=== PATIENT | female | born 1970 | race African-American/Black ===

== ENCOUNTER 2022-08-09 12:55 | Emergency (ER) | payer OTHER, SELFPAY ==
[2022-08-09 13:01] VITALS: BP 159/58; PULSE 60; RESP 16; TEMP 36.5; O2SAT 99; BMI 30.2
--- NOTE | 2022-08-09 13:03 | ED_ITS ---
HPI - General Adult General Chief complaint: Wound/Laceration Stated complaint: needle stick Time Seen by Provider: 08/09/22 14:06 Related Data Previous Rx's Medication Instructions Recorded doxycycline monohydrate 100 mg 100 mg PO BID 10 days #20 tabs 08/09/22 tablet Allergies Allergy/AdvReac Type Severity Reaction Status Date / Time morphine Allergy Unknown Verified 05/11/16 00:00 [facility] Social History Social History Advance Directives: No Advance Directives Information Provided: Yes Physical Exam ED Vital Signs: Vital Signs - 24 hr 08/09/22 13:01 Temperature 97.7 F Pulse Rate 60 Respiratory Rate 16 Blood Pressure 159/58 H Pulse Oximetry 99 Oxygen Delivery Method Room Air BMI result Body Mass Index 30.2 Course Reevaluation(s) Reevaluation #1: 52-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 Time: 13:03 Medications Administered Discontinued Medications Generic Name Dose Route Start Last Admin Trade Name Freq PRN Reason Stop Dose Admin Diphtheria/Tetanus/Acell Pertussis 0.5 ml 08/09/22 14:13 08/09/22 15:12 Diphth,Pertus(Acell),Tet Adult 0.5 Ml Syringe IM 08/09/22 14:14 0.5 ml .ONCE ONE Administration Doxycycline Monohydrate 100 mg 08/09/22 14:13 08/09/22 15:11 Doxycycline Monohydrate 100 Mg Capsule PO 08/09/22 14:14 100 mg ONCE ONE Administration Raltegravir/Emtricitabine/Tenofovir 1 kit 08/09/22 14:13 08/09/22 15:14 Post Exposure Medication Kit PO 08/09/22 14:14 1 kit ONCE ONE Administration Medical Decision Making Lab Data Result diagrams: 08/09/22 14:45 08/09/22 14:45 Labs: Lab Results 08/09/22 08/09/22 08/09/22 Range/Units 14:45 14:45 14:45 WBC 4.7 L (4.8-10.8) X10*3/uL RBC 4.95 (4.20-5.50) X10*6/uL Hgb 13.8 (12.0-16.0) g/dl Hct 42.3 (37.0-47.0) % MCV 85.5 (80.0-98.0) fL MCH 27.9 (27.0-33.0) pg MCHC 32.6 (31.0-35.0) g/dl RDW 14.4 (11.0-16.0) % Plt Count 255 (160-400) X10*3/uL MPV 10.2 (9.4-12.3) fL Immature Gran % (Auto) 0.2 (0.0-0.4) % Neut % (Auto) 58.5 (45-73) % Lymph % (Auto) 34.0 (20-40) % [place] % (Auto) 6.0 (2-11) % Eos % (Auto) 0.9 (0-4) % Baso % (Auto) 0.4 (0-2) % Lymph # (Auto) 1.6 (1.2-4.9) X10*3/uL [place] # (Auto) 0.3 (0.1-1.2) X10*3/uL Eos # (Auto) 0.0 (0.0-0.4) X10*3/uL Baso # (Auto) 0.0 (0.0-0.2) X10*3/uL Abs Immat Gran (auto) 0.01 (0.00-0.03) X10*3/uL Absolute Neuts (auto) 2.7 (2.0-8.3) x10*3/uL Absolute Nucleated RBC 0.000 (0.0-0.012) X10*3/uL Nucleated RBC % (auto) 0.0 (0.0-0.2) /100WBC Sodium 139 (135-145) mmol/L Potassium 4.3 (3.3-5.1) mmol/L Chloride 105 (96-108) mmol/L Carbon Dioxide 24 (22-29) mmol/L Anion Gap 14 (12-20) BUN 16 (9-16) mg/dL Creatinine 1.06 (0.5-1.4) mg/dL Estim Creat Clear Calc 59.8 Estimated GFR 54 Random Glucose 78 (60-115) mg/dL Calcium 10.0 (8.4-10.2) mg/dL Magnesium 2.2 (1.6-2.6) mg/dL Total Bilirubin 0.5 (0.0-1.0) mg/dL AST 21 (5-31) U/L ALT 25 (0-31) U/L Alkaline Phosphatase 84 (39-117) U/L Total Protein 7.7 (6.5-8.0) g/dL Albumin 4.8 (3.5-5.0) g/dL Beta HCG, Quant < 2 mIU/mL Discharge Plan Discharge Clinical Impression: Needle stick injury, Work related injury, Vaccine for diphtheria-tetanus Patient Disposition: Home, Self-Care Instructions: Diphtheria/Tetanus Vaccine (By injection), Needle Stick Injuries (ED), Return to Work Instructions (ED) Additional Instructions: You have pending lab results. If any are positive or abnormal you will be contacted within 5-7 days. Please follow-up with work connection for your job. You have 72 hours to start your HIV prophylactic therapy. Return if any new or worsening symptoms. Prescriptions: New doxycycline monohydrate 100 mg tablet 100 mg PO BID 10 Days Qty: 20 0RF Referrals: Physician,None [Primary Care Provider] - 1 day (work connection for your job ) Stand Alone Forms: Work/School Release
--- NOTE | 2022-08-09 14:18 | ED_ITS ---
HPI - Wound/Laceration General Chief Complaint: Wound/Laceration Stated Complaint: needle stick Time Seen by Provider: 08/09/22 14:06 Source: patient Mode of arrival: ambulatory Limitations: no limitations History of Present Illness HPI narrative: Patient is a 52-year-old female with a reported past medical history who presents to the ED for needlestick injury to the left distal index finger this morning around 0900. 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 She reports her client placed the used needle on the table without telling her and when she went to clean the table she was stuck in her left index finger. She denies pain, swelling, num bness/tingling, and any other complaints at this time. She is unsure of her tetanus status. Onset (ago): hour(s) (5) Location: other (L index finger) Extremity Location: left: hand (L index finger) Place: work Patient tetanus UTD: No (unsure) Context: accidental Associated symptoms: none Related Data Previous Rx's Medication Instructions Recorded doxycycline monohydrate 100 mg 100 mg PO BID 10 days #20 tabs 08/09/22 tablet Allergies Allergy/AdvReac Type Severity Reaction Status Date / Time morphine Allergy Unknown Verified 05/11/16 00:00 Review of Systems Review of Systems: Constitutional : No Fever, No Chills, Cardiovascular : No Chest Pain, No SOB Respiratory : No Dyspnea Gastrointestinal : No abdominal pain Musculoskeletal : No Joint Swelling Skin : positive needle stick injury, No Foreign bodies, No rash, No surrounding erythema Neuro : No Weakness, No Numbness/tingling Psych : No SI/HI/thoughts of self injury Yes all other systems are reviewed and are negative [facility] Past Medical History Attestation statement: The following information was validated with the patient. Source: old records reviewed, obtained from family and nursing notes reviewed Social History Social History Advance Directives: No Advance Directives Information Provided: Yes Physical Exam Vital Signs: Vital Signs: Last Vital Signs Temp 97.7 F 08/09/22 13:01 Pulse 60 08/09/22 13:01 Resp 16 08/09/22 13:01 BP 159/58 H 08/09/22 13:01 Pulse Ox 99 08/09/22 13:01 O2 Del Method 08/09/22 13:01 BMI result Body Mass Index 30.2 vital signs have been reviewed as normal and appeared to be correct. Blood pressure 159/58 Heart rate normal. Respiration rate normal. Temperature normal. Oxygen saturation normal. Appearance: Alert. Oriented X3. No acute distress. Head: Normal external exam. Normocephalic. Atraumatic. Eyes: PERRLA. EOMI. Conjunctiva and sclera normal. Eyelids normal. ENT: Pharynx normal. Uvula midline. Moist mucous membranes. Neck: Normal inspection. Neck supple. FROM. CVS: Normal heart rate and rhythm. Respiratory: No respiratory distress. Painless inspiration. Skin: Skin warm and dry. Normal skin color. Normal skin turgor. No rashes/lesions/lacerations noted. Extremities: Extremities exhibit normal range of motion. Extremities nontender. Neuro: Oriented X 3. No motor deficit. No sensory deficit. Reflexes normal. Normal steady gait. No focal neuro deficits noted. Vascular: +2 radial pulses/+ 2 distal pedal pulses/+2 dorsalis pedis b/l. Normal cap refill. No cyanosis noted to upper extremity nails and lower extremity toes nails. Course Course Course Narrative: Patient is a 52-year-old female with a reported past medical history who presents to the ED for needlestick injury to the left distal index finger this morning around 0900. Tetanus status is unknown. Will order exposure panel of HIV, HBV, HCV. Discussed PrEP with pt, she would like to start the kit. Will order CBC, CMP, liver function, hCG prior to starting kit. Pt concerned for infection in the puncture site as her client is positive for MRSA. Puncture site is not currently erythematous, edematous, or warm however given pt concern will cover for MRSA with doxy. Will update tetanus today. Reevaluation(s) Reevaluation #1: Labs within normal limits. Hepatitis and HIV pending. Patient's tetanus was updated. Will DC home with antibiotics and HIV prophylactic therapy and antibiotics for possible MRSA and instructions return if any new or worsening symptoms. Patient understands agrees with this plan. Time: 15:24 Medications Administered Discontinued Medications Generic Name Dose Route Start Last Admin Trade Name Freq PRN Reason Stop Dose Admin Diphtheria/Tetanus/Acell Pertussis 0.5 ml 08/09/22 14:13 08/09/22 15:12 Diphth,Pertus(Acell),Tet Adult 0.5 Ml Syringe IM 08/09/22 14:14 0.5 ml .ONCE ONE Administration Doxycycline Monohydrate 100 mg 08/09/22 14:13 08/09/22 15:11 Doxycycline Monohydrate 100 Mg Capsule PO 08/09/22 14:14 100 mg ONCE ONE Administration Raltegravir/Emtricitabine/Tenofovir 1 kit 08/09/22 14:13 08/09/22 15:14 Post Exposure Medication Kit PO 08/09/22 14:14 1 kit ONCE ONE Administration MDM - Wound/Laceration Medical Records Attestation: I reviewed the patient's medical records. Lab Data Attestation: I reviewed the patient's lab results. Result diagrams: 08/09/22 14:45 08/09/22 14:45 Labs: Lab Results 08/09/22 08/09/22 08/09/22 Range/Units 14:45 14:45 14:45 WBC 4.7 L (4.8-10.8) X10*3/uL RBC 4.95 (4.20-5.50) X10*6/uL Hgb 13.8 (12.0-16.0) g/dl Hct 42.3 (37.0-47.0) % MCV 85.5 (80.0-98.0) fL MCH 27.9 (27.0-33.0) pg MCHC 32.6 (31.0-35.0) g/dl RDW 14.4 (11.0-16.0) % Plt Count 255 (160-400) X10*3/uL MPV 10.2 (9.4-12.3) fL Immature Gran % (Auto) 0.2 (0.0-0.4) % Neut % (Auto) 58.5 (45-73) % Lymph % (Auto) 34.0 (20-40) % [place] % (Auto) 6.0 (2-11) % Eos % (Auto) 0.9 (0-4) % Baso % (Auto) 0.4 (0-2) % Lymph # (Auto) 1.6 (1.2-4.9) X10*3/uL [place] # (Auto) 0.3 (0.1-1.2) X10*3/uL Eos # (Auto) 0.0 (0.0-0.4) X10*3/uL Baso # (Auto) 0.0 (0.0-0.2) X10*3/uL Abs Immat Gran (auto) 0.01 (0.00-0.03) X10*3/uL Absolute Neuts (auto) 2.7 (2.0-8.3) x10*3/uL Absolute Nucleated RBC 0.000 (0.0-0.012) X10*3/uL Nucleated RBC % (auto) 0.0 (0.0-0.2) /100WBC Sodium 139 (135-145) mmol/L Potassium 4.3 (3.3-5.1) mmol/L Chloride 105 (96-108) mmol/L Carbon Dioxide 24 (22-29) mmol/L Anion Gap 14 (12-20) BUN 16 (9-16) mg/dL Creatinine 1.06 (0.5-1.4) mg/dL Estim Creat Clear Calc 59.8 Estimated GFR 54 Random Glucose 78 (60-115) mg/dL Calcium 10.0 (8.4-10.2) mg/dL Magnesium 2.2 (1.6-2.6) mg/dL Total Bilirubin 0.5 (0.0-1.0) mg/dL AST 21 (5-31) U/L ALT 25 (0-31) U/L Alkaline Phosphatase 84 (39-117) U/L Total Protein 7.7 (6.5-8.0) g/dL Albumin 4.8 (3.5-5.0) g/dL Beta HCG, Quant < 2 mIU/mL Discharge Plan Discharge Clinical Impression: Needle stick injury, Work related injury, Vaccine for diphtheria-tetanus Patient Disposition: Home, Self-Care Instructions: Diphtheria/Tetanus Vaccine (By injection), Needle Stick Injuries (ED), Return to Work Instructions (ED) Additional Instructions: You have pending lab results. If any are positive or abnormal you will be contacted within 5-7 days. Please follow-up with work connection for your job. You have 72 hours to start your HIV prophylactic therapy. Return if any new or worsening symptoms. Prescriptions: New doxycycline monohydrate 100 mg tablet 100 mg PO BID 10 Days Qty: 20 0RF Referrals: Physician,None [Primary Care Provider] - 1 day (work connection for your job ) Stand Alone Forms: Work/School Release
[2022-08-09 14:58] LABS: MANUAL DIFF FLAG NO
[2022-08-09 15:01] LABS: Basophils Percent Auto 0.4 % (0-2); Eosinophils Percent Auto 0.9 % (0-4); Hematocrit 42.3 % (37.0-47.0); Hemoglobin 13.8 g/dl (12.0-16.0); Imm Gran Abs Auto 0.01 X10*3/uL (0.00-0.03); Imm Gran Pct Auto 0.2 % (0.0-0.4); Lymphocytes Absolute Auto 1.6 X10*3/uL (1.2-4.9); Mean Corpuscular HGB Conc 32.6 g/dl (31.0-35.0); Mean Corpuscular Hemoglobin 27.9 pg (27.0-33.0); Mean Corpuscular Volume 85.5 fL (80.0-98.0); Mean Platelet Volume 10.2 fL (9.4-12.3); Monocytes Absolute Auto 0.3 X10*3/uL (0.1-1.2); Neutrophils Absolute Auto 2.7 x10*3/uL (2.0-8.3); Neutrophils Percent Auto 58.5 % (45-73); Platelet Count 255 X10*3/uL (160-400); Red Blood Count 4.95 X10*6/uL (4.20-5.50); Red Cell Distribution Width 14.4 % (11.0-16.0); White Blood Count 4.7 X10*3/uL (4.8-10.8)
[2022-08-09] MEDS: Doxycycline Monohydrate 100 MG CAPSULE PO (15:11)
[2022-08-09] MEDS: Diphth,Pertus(ACell),Tet Adult 0.5 ML SYRINGE IM (15:12)
[2022-08-09] MEDS: Post Exposure Medication Kit 1 KIT PO (15:14)
[2022-08-09 15:21] LABS: Alanine Aminotransferase 25 U/L (0-31); Albumin Level 4.8 g/dL (3.5-5.0); Alkaline Phosphatase 84 U/L (39-117); Anion Gap 14 (12-20); Aspartate Amino Transferase 21 U/L (5-31); Bilirubin Total 0.5 mg/dL (0.0-1.0); Blood Urea Nitrogen 16 mg/dL (9-16); Carbon Dioxide 24 mmol/L (22-29); Chloride 105 mmol/L (96-108); Creatinine Clr Calc Pharmacy 59.8; Estimated Glomerular Filt Rate 54; Glucose Random 78 mg/dL (60-115); Magnesium 2.2 mg/dL (1.6-2.6); Potassium 4.3 mmol/L (3.3-5.1); Sodium 139 mmol/L (135-145); Total Protein 7.7 g/dL (6.5-8.0)
[2022-08-09 15:41] LABS: HCG Quantitative < 2 mIU/mL
[2022-08-10 12:09] LABS: HBS Num1 5.51 mIU/mL (0-7.99); HBsAGNum1 0.22 S/CO (0.00-0.99); Hepatitis B Surface Antigen Negative (Negative); ~Hepatitis B Surface Antibody NONREACTIVE (Nonreactive)
[2022-08-10 12:14] LABS: HBS Num1 4.86 mIU/mL (0-7.99); HBc Num1 0.08 S/CO (0.00-0.79); HIV AB/AG Nonreactive (Nonreactive); HIV Num 1 0.13 S/CO (0.00-0.99); Hepatitis B Core Antibody Nonreactive (Nonreactive); Hepatitis B Surface Antigen Negative (Negative); ~HepC Num1 0.07 S/CO (0.00-0.79); ~Hepatitis B Surface Antibody NONREACTIVE (Nonreactive); ~Hepatitis C Antibody Nonreactive (Nonreactive)
[2022-08-11 13:15] LABS: Hepatitis A Antibody IgM 0.28 Index (0-0.79); ~Hepatitis A Antibody IgM Nonreactive (Nonreactive)
== END 2022-08-09 15:51 | disposition home or self-care (01) ==
PROVIDERS: Emergency Medicine; Physician Assistant Medical; Emergency Provider Emergency Medicine Emergency Medical Services
DX: Z04.2 Encounter for examination and observation following work accident (principal); Z77.21 Contact with and (suspected) exposure to potentially hazardous body fluids
CPT/HCPCS: 36415; 80053; 83735; 84702; 85025; 86704; 86706; 86709; 86803; 87340; 87389; 90471; 90715; 99283; 99284